=== PATIENT | female | born 1980 | race Caucasian/White ===

== ENCOUNTER 2017-07-15 18:36 | Emergency (ER) | payer OTHER ==
[2017-07-15] MEDS: CYCLOBENZAPRINE 10 MG TAB PO (19:57)
[2017-07-15] MEDS: PERCOCET 5MG/325MG TAB PO (19:58)
[2017-07-15] MEDS: NORCO 5/325MG TABLET (BULK FOR ED) PO (22:32)
== END 2017-07-15 22:35 | disposition home or self-care (01) ==
LOC: M ED 18:36
DX: M54.5 Low back pain (principal); M25.551 Pain in right hip; K21.9 Gastro-esophageal reflux disease without esophagitis; F41.9 Anxiety disorder, unspecified; F33.9 Major depressive disorder, recurrent, unspecified; M51.9 Unspecified thoracic, thoracolumbar and lumbosacral intervertebral disc disorder; Z91.040 Latex allergy status
CPT/HCPCS: 73502

== ENCOUNTER → 2018-10-16 | Outpatient (CLI) | payer OTHER ==
[~2018-10-16] MED LIST: CYCL10TA PO; HYDR-3715 PO; IBUP200C25 PO; MAXA5TAB10 PO; MECL-68 PO; SCOP1PAT TD; TYLE325T5 PO; [UNRECOGNIZED DRUG - OTHER] TOP; celebrex PO
--- NOTE | 2018-10-16 16:06 | REP ---
PA and lateral chest: There are no comparisons. There is a 5 mm nodule in the left lower lobe. In the absence of comparison studies to document stability, I would recommend follow-up CT for further evaluation. Lung bill otherwise clear. Cardiac size is normal. The ha, mediastinum, and skeletal structures are unremarkable. Impression: There are no acute cardiopulmonary findings. 5 mm left lower lobe lung nodule. Follow-up CT is recommended as discussed. Electronically Signed by Gerson Celaya MD 10/16/2018 03:57 P
== END ==
LOC: M LRY 15:28
PROVIDERS: ATTEND Physician Assistant
DX: R91.1 Solitary pulmonary nodule (principal); R05 Cough

== ENCOUNTER 2020-02-05 18:41 | Emergency (ER) | payer OTHER ==
[~2020-02-05] VITALS: Ht 154.9 cm; Wt 56.8 kg
[~2020-02-05 18:41] MED LIST changes: +CYCL-707 PO; -CYCL10TA PO
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
[2020-02-05] MEDS: MORPHINE 4 MG/ML 1ML VIAL/SYRINGE (J2270) IV PRN ×2 (20:16→21:01)
[2020-02-05 20:17] LABS: BASO # 0.1 10^3/uL (0.0-0.2); BASO % 0.8 % (0.0-1.0); EOS # 0.1 10^3/uL (0.0-0.5); HEMATOCRIT 36.6 % (36.0-47.0); HEMOGLOBIN 11.2 g/dl (12.0-15.5); LYMPH # 1.8 10^3/uL (1.5-5.0); LYMPH % 29.6 % (24.0-44.0); MEAN CORPUSCULAR HEMOGLOBIN 24.6 pg (27.0-33.0); MEAN CORPUSCULAR HGB CONC 30.6 g/dl (32.0-36.5); MEAN CORPUSCULAR VOLUME 80.3 fl (80.0-96.0); MONO # 0.5 10^3/uL (0.0-0.8); MONO % 7.3 % (0.0-5.0); NEUTROPHILS # 3.7 10^3/uL (1.5-8.5); PLATELET COUNT, AUTOMATED 370 10^3/uL (150-450); RED BLOOD COUNT 4.56 10^6/uL (4.00-5.40); WHITE BLOOD COUNT 6.1 10^3/uL (4.0-10.0)
[2020-02-05 20:39] LABS: ALT/SGPT 17 U/L (12-78); BLOOD UREA NITROGEN 7 MG/DL (7-18); CALCIUM LEVEL 8.9 MG/DL (8.5-10.1); CARBON DIOXIDE LEVEL 24 MEQ/L (21-32); CHLORIDE LEVEL 110 MEQ/L (98-107); CREATININE FOR GFR 1.05 MG/DL (0.55-1.30); GLOMERULAR FILTRATION RATE > 60.0 (>60); GLUCOSE, FASTING 107 MG/DL (70-100); POTASSIUM SERUM 3.8 MEQ/L (3.5-5.1); SODIUM LEVEL 140 MEQ/L (136-145)
[2020-02-05 20:40] LABS: BILIRUBIN,DIRECT < 0.1 MG/DL (0.0-0.2); BILIRUBIN,TOTAL 0.5 MG/DL (0.2-1.0); TOTAL PROTEIN 7.3 GM/DL (6.4-8.2)
[2020-02-05] MEDS ORDERED: ISOVUE-370 76% 100ML VIAL As Ordered ONE (20:48)
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
[2020-02-05] MEDS ORDERED: KETOROLAC 30 MG/ML 1ML VIAL IV ONE (22:30)
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
[2020-02-06 01:55] VITALS: BP 110/62
== END 2020-02-06 01:57 | disposition home or self-care (01) ==
LOC: EDBD 18:41 → M ED 18:41
DX: S09.90XA Unspecified injury of head, initial encounter (principal); S70.01XA Contusion of right hip, initial encounter; V40.5XXA Car driver injured in collision with pedestrian or animal in traffic accident, initial encounter; Y92.410 Unspecified street and highway as the place of occurrence of the external cause; F41.9 Anxiety disorder, unspecified; F43.10 Post-traumatic stress disorder, unspecified; K21.9 Gastro-esophageal reflux disease without esophagitis; Z88.5 Allergy status to narcotic agent
CPT/HCPCS: 70450; 71260; 72125; 72128; 72131; 73502; 73552; 73564; 74177; 80048; 80076; 85025; 93041; 94760; 99285; J1885; J2270; Q9967

== ENCOUNTER 2021-05-19 18:20 | Emergency (ER) | payer OTHER ==
[~2021-05-19] VITALS: Ht 154.9 cm; Wt 61.1 kg
[2021-05-19] MEDS ORDERED: KETOROLAC TROMETHAMINE 10 MG TAB PO ONE (22:10)
[2021-05-19] MEDS ORDERED: LIDOCAINE 5% (LIDODERM) PATCH TD ONE (22:10)
[2021-05-19] MEDS ORDERED: methocarbamoL 500 MG TAB PO ONE (22:10)
[2021-05-19] MEDS ORDERED: METH-1164 PO (22:17)
[2021-05-19] MEDS ORDERED: KETO10TAB PO (22:17)
[2021-05-19 22:43] VITALS: BP 132/85
[2021-05-20] MEDS ORDERED: **NOTE PATIENT COMMENT** MISC XX ONE (09:00)
== END 2021-05-19 22:44 | disposition home or self-care (01) ==
LOC: M ED 18:20
DX: S50.02XA Contusion of left elbow, initial encounter (principal); W01.0XXA Fall on same level from slipping, tripping and stumbling without subsequent striking against object, initial encounter; Y92.89 Other specified places as the place of occurrence of the external cause; M25.551 Pain in right hip; M25.511 Pain in right shoulder; F33.9 Major depressive disorder, recurrent, unspecified; F41.9 Anxiety disorder, unspecified; K21.9 Gastro-esophageal reflux disease without esophagitis; G89.29 Other chronic pain; Z88.5 Allergy status to narcotic agent

== ENCOUNTER → 2021-06-02 | Outpatient (CLI) | payer OTHER ==
[~2021-06-02] MED LIST changes: +KETO10TAB PO; +METH-1164 PO
== END ==
LOC: M WHC 08:05
PROVIDERS: ATTEND Family Medicine
DX: Z12.31 Encounter for screening mammogram for malignant neoplasm of breast (principal)

== ENCOUNTER → 2021-06-16 | Outpatient (CLI) | payer OTHER | LOC: M WHC 07:43 | PROVIDERS: ATTEND Family Medicine | DX: N60.11 Diffuse cystic mastopathy of right breast (principal); N60.12 Diffuse cystic mastopathy of left breast ==

== ENCOUNTER → 2021-08-06 | Outpatient (CLI) | payer OTHER | LOC: M LAB 10:00 | PROVIDERS: ATTEND Nurse Practitioner Women's Health | DX: Z80.9 Family history of malignant neoplasm, unspecified (principal) ==

== ENCOUNTER → 2021-08-15 | Outpatient (CLI) | payer OTHER | LOC: M PLALAB 11:19 | PROVIDERS: ATTEND Nurse Practitioner Women's Health | DX: Z15.89 Genetic susceptibility to other disease (principal) ==

== ENCOUNTER → 2021-09-22 | Outpatient (CLI) | payer OTHER ==
[~2021-09-22] MED LIST changes: +PROHANCE 279.3MG/ML 15ML VIAL As Ordered ONE
== END ==
LOC: M RAD 07:16
PROVIDERS: ATTEND Family Medicine
DX: N60.11 Diffuse cystic mastopathy of right breast (principal); N60.12 Diffuse cystic mastopathy of left breast
CPT/HCPCS: A9576; C8908

== ENCOUNTER → 2022-06-06 | Outpatient (CLI) | payer OTHER ==
[~2022-06-06] MED LIST changes: -PROHANCE 279.3MG/ML 15ML VIAL As Ordered ONE
== END ==
LOC: M WHC 15:03
PROVIDERS: ATTEND Nurse Practitioner Family
DX: Z12.31 Encounter for screening mammogram for malignant neoplasm of breast (principal)

== ENCOUNTER → 2022-12-08 | Outpatient (CLI) | payer OTHER ==
[~2022-12-08] MED LIST changes: +ISOVUE-300 61% 100ML VIAL As Ordered ONE; +LIDOCAINE 1% MDV 20ML VIAL As Ordered ONE; +PROHANCE 279.3MG/ML 5ML VIAL As Ordered ONE
== END ==
LOC: M RAD 06:16
PROVIDERS: ATTEND Nurse Practitioner Family
DX: S73.191A Other sprain of right hip, initial encounter (principal)
CPT/HCPCS: 27093; 73723; 77002; A9576; Q9967

== ENCOUNTER 2023-01-08 07:03 | Emergency (ER) | payer OTHER ==
[~2023-01-08] VITALS: Ht 154.9 cm; Wt 60.5 kg
[~2023-01-08 07:03] MED LIST changes: -ISOVUE-300 61% 100ML VIAL As Ordered ONE; -LIDOCAINE 1% MDV 20ML VIAL As Ordered ONE; -PROHANCE 279.3MG/ML 5ML VIAL As Ordered ONE
[2023-01-08 08:06] LABS: BASO # 0.1 10^3/uL (0.0-0.2); BASO % 0.7 % (0.0-1.0); EOS # 0.1 10^3/uL (0.0-0.5); EOS % 0.4 % (0.0-3.0); LYMPH # 1.5 10^3/uL (1.5-5.0); LYMPH % 12.6 % (24.0-44.0); MEAN CORPUSCULAR HEMOGLOBIN 25.6 pg (27.0-33.0); MEAN CORPUSCULAR HGB CONC 31.3 g/dl (32.0-36.5); MEAN CORPUSCULAR VOLUME 82.1 fl (80.0-96.0); MONO # 0.7 10^3/uL (0.0-0.8); MONO % 6.4 % (2.0-8.0); NEUTROPHILS # 9.3 10^3/uL (1.5-8.5); NEUTROPHILS % 79.5 % (36.0-66.0); PLATELET COUNT, AUTOMATED 340 10^3/uL (150-450); WHITE BLOOD COUNT 11.7 10^3/uL (4.0-10.0)
[2023-01-08 08:26] LABS: LIPASE 48 U/L (12-53)
[2023-01-08 08:30] LABS: ALBUMIN 3.9 G/DL (3.2-5.2); ALKALINE PHOSPHATASE 58 U/L (46-116); ALT/SGPT < 9 U/L (7.0-40); AST/SGOT 12 U/L (<34); BILIRUBIN,DIRECT 0.3 MG/DL (<0.4); BLOOD UREA NITROGEN 9 MG/DL (9-23); CALCIUM LEVEL 8.7 MG/DL (8.5-10.1); CARBON DIOXIDE LEVEL 25 MMOL/L (20-31); CHLORIDE LEVEL 107 MMOL/L (98-107); CREATININE FOR GFR 0.69 MG/DL (0.55-1.30); GLOMERULAR FILTRATION RATE > 60.0 (>58); GLUCOSE, FASTING 102 MG/DL (60-100); POTASSIUM SERUM 3.8 MMOL/L (3.5-5.1); SODIUM LEVEL 138 MMOL/L (136-145); TOTAL PROTEIN 6.6 G/DL (5.7-8.2)
[2023-01-08] MEDS ORDERED: ISOVUE-370 76% 100ML VIAL As Ordered ONE (08:36)
[2023-01-08] MEDS ORDERED: KETOROLAC 30 MG/ML 1ML VIAL IV ONE (09:10)
[2023-01-08] MEDS ORDERED: TRAM50TA2 PO (10:44)
[2023-01-08 10:50] VITALS: BP 134/75; TEMP 98.6; O2SAT 100
[2023-01-10 12:08] LABS: HE4 36.7 pmol/L (0.0-63.6)
== END 2023-01-08 10:53 | disposition home or self-care (01) ==
LOC: M ED 07:03
DX: R19.09 Other intra-abdominal and pelvic swelling, mass and lump (principal); Z80.41 Family history of malignant neoplasm of ovary; Z88.5 Allergy status to narcotic agent; Z91.040 Latex allergy status
CPT/HCPCS: 74177; 76857; 80048; 80076; 81001; 83690; 85025; 86304; 86305; 96374; 99284; J1885; Q9967

== ENCOUNTER → 2023-01-09 | Outpatient (CLI) | payer OTHER ==
[~2023-01-09] MED LIST changes: +TRAM50TA2 PO
[2023-01-09 11:51] LABS: CARCINOEMBRYONIC ANTIGEN < 2.0 NG/ML (<2.5)
[2023-01-09 12:07] LABS: CA19-9 TUMOR MARKER,CARBOHYDRA 5.9 U/ML (<35.0)
== END ==
LOC: M LAB 10:31
PROVIDERS: ATTEND Obstetrics & Gynecology
DX: R19.00 Intra-abdominal and pelvic swelling, mass and lump, unspecified site (principal)

== ENCOUNTER → 2023-06-08 | Outpatient (CLI) | payer OTHER | LOC: M WHC 07:47 | PROVIDERS: ATTEND Nurse Practitioner Family | DX: Z12.31 Encounter for screening mammogram for malignant neoplasm of breast (principal) ==

== ENCOUNTER 2023-09-15 13:59 | Observation (INO) | payer OTHER ==
[~2023-09-15] VITALS: Ht 154.9 cm; Wt 66.1 kg
[2023-09-15] MEDS ORDERED: CETI-24 PO (14:06)
[2023-09-15] MEDS ORDERED: PRED20TA PO (14:06)
[2023-09-15] MEDS ORDERED: IBUP80TA (14:06)
[2023-09-15] MEDS: diphenhydrAMINE 50MG/ML VIAL IV ONE (14:57)
[2023-09-15] MEDS: methylPREDNISolone 125MG 2ML VIAL IV ONE (14:57)
[2023-09-15] MEDS: FAMOTIDINE 20MG/2ML VIAL IVP ONE (14:57)
[2023-09-15 15:01] LABS: BASO % 0.1 % (0.0-1.0); HEMATOCRIT 32.1 % (36.0-47.0); LYMPH # 0.6 10^3/uL (1.5-5.0); LYMPH % 3.9 % (24.0-44.0); MEAN CORPUSCULAR HEMOGLOBIN 24.3 pg (27.0-33.0); MEAN CORPUSCULAR HGB CONC 31.2 g/dl (32.0-36.5); MEAN CORPUSCULAR VOLUME 77.9 fl (80.0-96.0); MONO # 0.2 10^3/uL (0.0-0.8); MONO % 1.7 % (2.0-8.0); NEUTROPHILS # 13.4 10^3/uL (1.5-8.5); PLATELET COUNT, AUTOMATED 386 10^3/uL (150-450); RED BLOOD COUNT 4.12 10^6/uL (4.00-5.40); WHITE BLOOD COUNT 14.3 10^3/uL (4.0-10.0)
[2023-09-15 15:10] LABS: ERYTHROCYTE SEDIMENTATION RATE 15 mm/hr (0-20)
[2023-09-15 15:29] LABS: C REACTIVE PROTEIN QUANTITATIV < 0.40 MG/DL (<1.0)
[2023-09-15] MEDS: ALBUTEROL SULFATE 2.5MG/0.5ML INH NEB SOLN NEB SCH (15:29)
[2023-09-15 15:31] LABS: BLOOD UREA NITROGEN 10 MG/DL (9-23); CALCIUM LEVEL 9.1 MG/DL (8.5-10.1); CARBON DIOXIDE LEVEL 22 MMOL/L (20-31); CHLORIDE LEVEL 110 MMOL/L (98-107); GLOMERULAR FILTRATION RATE > 60.0 (>58); GLUCOSE, FASTING 114 MG/DL (60-100); POTASSIUM SERUM 4.2 MMOL/L (3.5-5.1); SODIUM LEVEL 140 MMOL/L (136-145)
[2023-09-15] MEDS: ONDANSETRON 4MG 2ML VIAL IV ONE (16:23)
[2023-09-15] MEDS: NS 1,000 ML IV ONE ×2 (16:23→18:48)
[2023-09-15] MEDS: hydrOXYzine 50 MG TAB PO ONE (16:23)
[2023-09-15 17:04] LABS: MAGNESIUM LEVEL 1.7 MG/DL (1.8-2.4)
[2023-09-15] MEDS ORDERED: D200CAP3 PO (17:46)
[2023-09-15] MEDS ORDERED: FERR325T3 PO (17:46)
[2023-09-15] MEDS ORDERED: IBUP200T46 PO (17:46)
[2023-09-15] MEDS ORDERED: LIDO5DIS41 TD (17:46)
[2023-09-15] MEDS ORDERED: CYCL-707 PO (17:46)
[2023-09-15] MEDS ORDERED: HYDR-3363 PO (17:46)
[2023-09-15] MEDS ORDERED: HOME MED LIST COMPLETE! XX SCH (17:50)
[2023-09-15] MEDS ORDERED: MAALOX 30 ML SUSP *UDC PO PRN (18:05)
[2023-09-15] MEDS ORDERED: ACETAMINOPHEN TAB 650MG DOSE (2X325MG) PO PRN (18:05)
[2023-09-15] MEDS ORDERED: MOM 30ML SUSPENSION UDC PO PRN (18:05)
[2023-09-15] MEDS ORDERED: diphenhydrAMINE 50MG/ML VIAL IV PRN (18:10)
[2023-09-15 21:00] VITALS: BP 131/82; TEMP 98.7; O2SAT 98; O2SAT 99
[2023-09-15] MEDS: LIDOCAINE 5% (LIDODERM) PATCH TD SCH (21:00)
[2023-09-15] MEDS: diphenhydrAMINE 50MG/ML VIAL IV PRN (21:13)
[2023-09-15] MEDS: RAMELTEON 8 MG TAB (ROZEREM) PO SCH (21:13)
[2023-09-15 22:00] VITALS: O2SAT 99
[2023-09-15 23:00] VITALS: O2SAT 99
[2023-09-15 23:36] VITALS: BP 103/66; TEMP 98.5; O2SAT 98
[2023-09-16] VITALS (10 sets, daily range): BP systolic 109–119; BP diastolic 59–83; TEMP 97.7–98.6; O2SAT 96–99
[2023-09-16] MEDS: CETIRIZINE (ZyrTEC) 10 MG TAB PO ONE (00:14)
[2023-09-16] MEDS: CALAMINE LOTION 177 ML BTL TOP PRN (00:15)
[2023-09-16 04:56] LABS: HEMATOCRIT 28.3 % (36.0-47.0); HEMOGLOBIN 8.5 g/dl (12.0-15.5); LYMPH # 0.7 10^3/uL (1.5-5.0); LYMPH % 5.5 % (24.0-44.0); MEAN CORPUSCULAR HEMOGLOBIN 23.8 pg (27.0-33.0); MEAN CORPUSCULAR VOLUME 79.3 fl (80.0-96.0); MONO # 0.4 10^3/uL (0.0-0.8); MONO % 2.8 % (2.0-8.0); NEUTROPHILS # 11.8 10^3/uL (1.5-8.5); NEUTROPHILS % 90.9 % (36.0-66.0); PLATELET COUNT, AUTOMATED 320 10^3/uL (150-450); RED BLOOD COUNT 3.57 10^6/uL (4.00-5.40)
[2023-09-16] MEDS: MAG SULF 1GM/100ML (MAG RUN) 1 GM in IV 1 EA IV SCH (06:21)
[2023-09-16] MEDS ORDERED: PRED20TA PO (08:52)
[2023-09-16] MEDS ORDERED: FAMO20TA PO (08:52)
[2023-09-16] MEDS ORDERED: CALALOT4 TOP (08:52)
[2023-09-16] MEDS ORDERED: EPIP0.3I2 IM (08:53)
[2023-09-16] MEDS ORDERED: methylPREDNISolone 40MG 1ML VIAL IV SCH (09:00)
[2023-09-16] MEDS: methylPREDNISolone 40MG 1ML VIAL IV SCH (09:53)
[2023-09-16] MEDS: FAMOTIDINE 20 MG TAB PO SCH (09:54)
[2023-09-16] MEDS: ENOXAPARIN 40MG/0.4ML SYRINGE (J1650 PER 10MG) SC SCH (09:54)
[2023-09-16 10:07] LABS: PERCENT SATURATION 4.5 % (13.2-45.0)
[2023-09-16 10:10] LABS: FERRITIN 2.6 NG/ML (7.3-270.7)
[2023-09-16] MEDS: predniSONE 20 MG TAB PO SCH (16:21)
[2023-09-16] MEDS ORDERED: BENA25CA4 PO (18:13)
[2023-09-16] MEDS ORDERED: FERR325T3 PO (18:13)
== END 2023-09-16 19:05 | disposition home or self-care (01) ==
LOC: M ED 13:59 → M ED INP 14:00 → M PCU 21:09
PROVIDERS: ADMIT Student in an Organized Health Care Education/Training Program; ATTEND Student in an Organized Health Care Education/Training Program
DX: L50.9 Urticaria, unspecified (principal); R94.31 Abnormal electrocardiogram [ECG] [EKG]; D72.829 Elevated white blood cell count, unspecified; D50.9 Iron deficiency anemia, unspecified; F41.9 Anxiety disorder, unspecified; K21.9 Gastro-esophageal reflux disease without esophagitis; Z91.040 Latex allergy status; Z88.5 Allergy status to narcotic agent; Z79.899 Other long term (current) drug therapy
CPT/HCPCS: 36415; 71045; 80048; 82728; 83550; 83735; 85025; 85652; 86140; 93005; 93041; 94640; 94760; 96361; 96374; 96375; 96376; 99285; G0378; J1200; J1650; J2405; J2919; J3475; J7512

== ENCOUNTER → 2023-10-25 | Outpatient (CLI) | payer OTHER ==
[~2023-10-25] MED LIST changes: +BENA25CA4 PO; +CALALOT4 TOP; +CETI-24 PO; +D200CAP3 PO; +EPIP0.3I2 IM; +FAMO20TA PO; +FERR325T3 PO; +HYDR-3363 PO; +IBUP200T46 PO; +IBUP80TA; +LIDO5DIS41 TD; +PRED20TA PO
[2023-10-25 17:14] LABS: BASO # 0.1 10^3/uL (0.0-0.2); BASO % 0.8 % (0.0-1.0); EOS # 0.1 10^3/uL (0.0-0.5); EOS % 1.7 % (0.0-3.0); HEMATOCRIT 36.7 % (36.0-47.0); LYMPH # 1.8 10^3/uL (1.5-5.0); LYMPH % 29.9 % (24.0-44.0); MEAN CORPUSCULAR HEMOGLOBIN 23.2 pg (27.0-33.0); MEAN CORPUSCULAR VOLUME 77.3 fl (80.0-96.0); MONO # 0.5 10^3/uL (0.0-0.8); NEUTROPHILS # 3.5 10^3/uL (1.5-8.5); NEUTROPHILS % 59.3 % (36.0-66.0); PLATELET COUNT, AUTOMATED 339 10^3/uL (150-450); RED BLOOD COUNT 4.75 10^6/uL (4.00-5.40); WHITE BLOOD COUNT 5.9 10^3/uL (4.0-10.0)
[2023-10-25 17:21] LABS: ERYTHROCYTE SEDIMENTATION RATE 25 mm/hr (0-20)
[2023-10-25 17:45] LABS: ALBUMIN 4.2 G/DL (3.2-5.2); ALKALINE PHOSPHATASE 77 U/L (46-116); ALT/SGPT 10 U/L (7.0-40); AST/SGOT < 8 U/L (<34); BILIRUBIN,TOTAL 0.6 MG/DL (0.3-1.2); BLOOD UREA NITROGEN 7 MG/DL (9-23); CALCIUM LEVEL 9.5 MG/DL (8.5-10.1); CARBON DIOXIDE LEVEL 26 MMOL/L (20-31); CHLORIDE LEVEL 108 MMOL/L (98-107); CREATININE FOR GFR 0.89 MG/DL (0.55-1.30); GLOMERULAR FILTRATION RATE > 60.0 (>58); GLUCOSE, FASTING 89 MG/DL (60-100); POTASSIUM SERUM 4.2 MMOL/L (3.5-5.1); SODIUM LEVEL 139 MMOL/L (136-145); TOTAL PROTEIN 7.1 G/DL (5.7-8.2)
[2023-10-25 17:47] LABS: RHEUMATOID FACTOR QUANT 5.2 IU/ML (<14); THYROID STIMULATING HORMONE 0.715 uIU/ML (0.55-4.78); THYROXINE (T4) 7.7 UG/DL (4.5-10.9)
[2023-10-25 17:49] LABS: TOTAL T3 101.4 NG/DL (60.0-181.0)
[2023-10-25 17:50] LABS: THYROID PEROXIDASE ANTIBODY 44 U/ML (<60.0)
== END ==
LOC: M LAB 15:51
PROVIDERS: ATTEND Allergy & Immunology Allergy
DX: L50.1 Idiopathic urticaria (principal)

== ENCOUNTER → 2023-12-04 | Outpatient (CLI) | payer OTHER ==
[2023-12-04 18:25] LABS: BASO # 0.1 10^3/uL (0.0-0.2); BASO % 1.1 % (0.0-1.0); EOS # 0.1 10^3/uL (0.0-0.5); EOS % 1.6 % (0.0-3.0); HEMATOCRIT 39.2 % (36.0-47.0); HEMOGLOBIN 11.8 g/dl (12.0-15.5); LYMPH % 25.6 % (24.0-44.0); MEAN CORPUSCULAR HEMOGLOBIN 23.4 pg (27.0-33.0); MEAN CORPUSCULAR HGB CONC 30.1 g/dl (32.0-36.5); MEAN CORPUSCULAR VOLUME 77.8 fl (80.0-96.0); MONO # 0.6 10^3/uL (0.0-0.8); MONO % 7.5 % (2.0-8.0); NEUTROPHILS # 4.9 10^3/uL (1.5-8.5); NEUTROPHILS % 63.8 % (36.0-66.0); PLATELET COUNT, AUTOMATED 347 10^3/uL (150-450); RED BLOOD COUNT 5.04 10^6/uL (4.00-5.40); WHITE BLOOD COUNT 7.6 10^3/uL (4.0-10.0)
[2023-12-04 18:35] LABS: BLOOD UREA NITROGEN < 5 MG/DL (9-23); CARBON DIOXIDE LEVEL 29 MMOL/L (20-31); CHLORIDE LEVEL 104 MMOL/L (98-107); CREATININE FOR GFR 0.83 MG/DL (0.55-1.30); GLOMERULAR FILTRATION RATE > 60.0 (>58); GLUCOSE, FASTING 85 MG/DL (60-100); POTASSIUM SERUM 3.8 MMOL/L (3.5-5.1); SODIUM LEVEL 137 MMOL/L (136-145)
== END ==
LOC: M PLALAB 15:16
PROVIDERS: ATTEND Internal Medicine Hematology
DX: D50.8 Other iron deficiency anemias (principal); E83.42 Hypomagnesemia

== ENCOUNTER → 2023-12-20 | Outpatient (CLI) | payer OTHER ==
[~2023-12-20] VITALS: Ht 170.2 cm; Wt 61.4 kg
[~2023-12-20] MED LIST changes: +ALBUTEROL SULFATE 2.5MG/0.5ML INH NEB SOLN INH PRN; +EPINEPHrine INJ 1 MG/ML 1ML AMP IM PRN; +NS 1,000 ML IV SCH; +diphenhydrAMINE 50MG/ML VIAL IV PRN; +methylPREDNISolone 125MG 2ML VIAL IV PRN
[2023-12-20 13:39] VITALS: BP 126/81; O2SAT 98
[2023-12-20] MEDS: IRON SUCROSE 300 MG in NS 250 ML IV ONE (14:08)
[2023-12-20 16:05] VITALS: BP 123/86; O2SAT 97
== END ==
LOC: M INFU 13:03
PROVIDERS: ATTEND Internal Medicine Hematology
DX: D50.9 Iron deficiency anemia, unspecified (principal); Z88.5 Allergy status to narcotic agent; Z91.040 Latex allergy status
CPT/HCPCS: 96365; 96366; J1756

== ENCOUNTER 2023-12-27 12:55 | Outpatient (CLI) | payer OTHER ==
[~2023-12-27] VITALS: Ht 154.9 cm; Wt 64.0 kg
[2023-12-27] MEDS: IRON SUCROSE 300 MG in NS 250 ML IV ONE (14:03)
[2023-12-27 15:35] VITALS: BP 115/80; O2SAT 99
== END 2023-12-27 15:45 | disposition home or self-care (01) ==
LOC: M INFU 12:55
PROVIDERS: ATTEND Internal Medicine Hematology
DX: D50.9 Iron deficiency anemia, unspecified (principal); Z88.5 Allergy status to narcotic agent; Z91.040 Latex allergy status
CPT/HCPCS: 96365; 96366; J1756

== ENCOUNTER 2024-01-03 12:54 | Outpatient (CLI) | payer OTHER ==
[~2024-01-03] VITALS: Ht 154.9 cm; Wt 61.0 kg
[2024-01-03 13:25] VITALS: BP 124/83; O2SAT 100
[2024-01-03] MEDS: IRON SUCROSE 300 MG in NS 250 ML IV ONE (14:16)
[2024-01-03 15:50] VITALS: BP 122/76; O2SAT 98
== END 2024-01-03 16:00 ==
LOC: M INFU 12:54
PROVIDERS: ATTEND Internal Medicine Hematology
DX: D50.9 Iron deficiency anemia, unspecified (principal); Z88.5 Allergy status to narcotic agent; Z91.040 Latex allergy status
CPT/HCPCS: 96365; J1756

== ENCOUNTER → 2024-01-04 | Outpatient (CLI) | payer OTHER ==
[~2024-01-04] MED LIST changes: -ALBUTEROL SULFATE 2.5MG/0.5ML INH NEB SOLN INH PRN; -EPINEPHrine INJ 1 MG/ML 1ML AMP IM PRN; +ISOVUE-300 61% 100ML VIAL As Ordered ONE; +LIDOCAINE 1% MDV 20ML VIAL As Ordered ONE; -NS 1,000 ML IV SCH; +PROHANCE 279.3MG/ML 5ML VIAL As Ordered ONE; -diphenhydrAMINE 50MG/ML VIAL IV PRN; -methylPREDNISolone 125MG 2ML VIAL IV PRN
== END ==
LOC: M RAD 06:41
PROVIDERS: ATTEND Registered Nurse
DX: M25.551 Pain in right hip (principal)
CPT/HCPCS: 27093; 73723; 77002; A9576; Q9967

== ENCOUNTER → 2024-04-28 | Outpatient (CLI) | payer OTHER ==
[~2024-04-28] MED LIST changes: -ISOVUE-300 61% 100ML VIAL As Ordered ONE; -LIDOCAINE 1% MDV 20ML VIAL As Ordered ONE; -PROHANCE 279.3MG/ML 5ML VIAL As Ordered ONE
[2024-04-28 10:07] LABS: BASO # 0.1 10^3/uL (0.0-0.2); BASO % 1.3 % (0.0-1.0); EOS # 0.2 10^3/uL (0.0-0.5); EOS % 3.1 % (0.0-3.0); HEMATOCRIT 40.3 % (36.0-47.0); HEMOGLOBIN 13.6 g/dl (12.0-15.5); LYMPH % 28.4 % (24.0-44.0); MEAN CORPUSCULAR HEMOGLOBIN 30.8 pg (27.0-33.0); MEAN CORPUSCULAR HGB CONC 33.7 g/dl (32.0-36.5); MEAN CORPUSCULAR VOLUME 91.4 fl (80.0-96.0); MONO # 0.6 10^3/uL (0.0-0.8); MONO % 8.4 % (2.0-8.0); NEUTROPHILS # 4.1 10^3/uL (1.5-8.5); NEUTROPHILS % 58.4 % (36.0-66.0); PLATELET COUNT, AUTOMATED 308 10^3/uL (150-450); RED BLOOD COUNT 4.41 10^6/uL (4.00-5.40); WHITE BLOOD COUNT 7.1 10^3/uL (4.0-10.0)
== END ==
LOC: M PLALAB 08:07
PROVIDERS: ATTEND Internal Medicine Hematology
DX: D50.8 Other iron deficiency anemias (principal)

== ENCOUNTER → 2024-06-09 | Outpatient (CLI) | payer OTHER | LOC: M WHC 15:29 | PROVIDERS: ATTEND Nurse Practitioner Family | DX: Z12.31 Encounter for screening mammogram for malignant neoplasm of breast (principal) ==

== ENCOUNTER → 2024-12-03 | Outpatient (CLI) | payer OTHER ==
[~2024-12-03] MED LIST changes: +LIDO1ADH93 TD; -LIDO5DIS41 TD; +PROHANCE 279.3MG/ML 5ML VIAL ONE
== END ==
LOC: M PLAIMG 14:19
PROVIDERS: ATTEND Family Medicine
DX: Z12.39 Encounter for other screening for malignant neoplasm of breast (principal); Z80.3 Family history of malignant neoplasm of breast; N60.11 Diffuse cystic mastopathy of right breast; N60.12 Diffuse cystic mastopathy of left breast
CPT/HCPCS: A9576; C8908

== ENCOUNTER → 2024-12-31 | Outpatient (CLI) | payer OTHER ==
[~2024-12-31] MED LIST changes: -PROHANCE 279.3MG/ML 5ML VIAL ONE
== END ==
LOC: M PLAIMG 12:29
PROVIDERS: ATTEND Nurse Practitioner Family
DX: Q79.60 Ehlers-Danlos syndrome, unspecified (principal)